=== PATIENT | male | born 1950 ===

== ENCOUNTER 2022-07-01 01:39 | Emergency (ER) | payer MEDICARE, OTHER ==
[~2022-07-01] VITALS: Ht 177.8 cm; Wt 75.5 kg
[2022-07-01 01:44] VITALS: BP 137/91
[2022-07-01] MEDS ORDERED: acetaminophen 325mg tablet PO ONE (02:35)
[2022-07-01] MEDS ORDERED: bacitracin 15gm ointment TP ONE (03:35)
== END 2022-07-01 04:04 | disposition home or self-care (01) ==
LOC: ER 01:41
DX: S00.81XA Abrasion of other part of head, initial encounter (principal); M79.644 Pain in right finger(s); Z88.8 Allergy status to other drugs, medicaments and biological substances; W01.0XXA Fall on same level from slipping, tripping and stumbling without subsequent striking against object, initial encounter; Y93.89 Activity, other specified; Y92.89 Other specified places as the place of occurrence of the external cause; Y99.8 Other external cause status; S09.90XA Unspecified injury of head, initial encounter
CPT/HCPCS: 70450; 72125; 73030; 73130; 93005; 99284